=== PATIENT | male | born 1965 | race Caucasian/White ===

== ENCOUNTER 2019-02-07 10:21 | Day surgery (SDC) | payer BC, OTHER ==
[2019-02-07] MEDS ORDERED: Propofol 200 MG/20 ML SDV ONE ×2 (10:22→11:13)
[2019-02-07] MEDS ORDERED: Lactated Ringers 1,000 ML IV SCH (10:30)
[2019-02-07] MEDS ORDERED: Sodium Chloride 0.9% 10 ML Syringe FLUSH PRN (10:30)
--- NOTE | 2019-02-07 11:12 | PCM.HPR ---
H & P Addendum review - H & P Addendum Review Date of Original H & P: 01/24/19 Date Reviewed: 02/07/19 (n) Patient was Examined: No Changes
--- NOTE | 2019-02-07 11:28 | PCM.OPNOTE ---
- General Post-Op/Procedure Note Date of Surgery/Procedure: 02/07/19 Operative Procedure(s): Colonoscopy Findings: Normal Pre Op Diagnosis: Screening Post-Op Diagnosis: Same Anesthesia Technique: MAC Primary Surgeon: Ke Deleon Complications: None Condition: Good
--- NOTE | 2019-02-08 08:58 | OR ---
Date of Procedure: 02/07/2019 PREOPERATIVE DIAGNOSIS: Colon screening. POSTOPERATIVE DIAGNOSIS: Normal colonoscopy. PROCEDURE: Colonoscopy. ANESTHESIA: IV sedation. DESCRIPTION OF PROCEDURE: The patient was brought to the procedure room where he was placed on his left side and IV sedation administered. Digital rectal exam was performed which was normal. Colonoscope was inserted and advanced to the level of the cecum without difficulty. Cecal position was confirmed by identifying the appendiceal lumen and ileocecal valve. Prep was good and surfaces were well visualized. Upon withdrawing the scope, the ascending, transverse, and descending colon were normal in appearance. Sigmoid colon and rectum were normal. Retroflexion was normal. Air was removed. The scope was withdrawn. The patient tolerated the procedure well and returned to Recovery in stable condition. Recommend routine colon screening in 10 years. SHARON DAY MD /[id number]
== END 2019-02-07 12:35 | disposition home or self-care (01) ==
LOC: LL.SDS 10:21
PROVIDERS: ATTEND Surgery
DX: Z12.11 Encounter for screening for malignant neoplasm of colon (principal); F17.220 Nicotine dependence, chewing tobacco, uncomplicated; Z79.899 Other long term (current) drug therapy; Z79.01 Long term (current) use of anticoagulants; Z86.79 Personal history of other diseases of the circulatory system; Z86.73 Personal history of transient ischemic attack (TIA), and cerebral infarction without residual deficits
CPT/HCPCS: 45378; J2704; J7120